=== PATIENT | female | born 1955 | race Caucasian/White ===

== ENCOUNTER 2016-11-19 11:57 | Emergency (ER) | payer OTHER ==
[~2016-11-19] VITALS: Ht 167.6 cm; Wt 72.6 kg
[~2016-11-19 11:57] MED LIST: AUGMENTIN 875875 MG PO; HYDROCHLOROTHIA25 M1 PO; LISINOPRIL20 M1 PO
--- NOTE | 2016-11-19 13:19 | ED GENERAL ADULT ---
History of Present Illness General Chief Complaint: Chest Pain Stated Complaint: CP Source: patient, old records Exam Limitations: no limitations Vital Signs & Intake/Output Vital Signs & Intake/Output ED Intake and Output 11/20 0000 11/19 1200 Intake Total 0 Output Total Balance 0 Intake, IV 0 Patient 160 lb Weight Allergies Coded Allergies: NO KNOWN ALLERGIES (12/08/11) Reconcile Medications Hydrochlorothiazide 25 MG TABLET 1 TAB PO DAILY WATER PILL (Reported) Lisinopril 20 MG TABLET 1 TAB PO DAILY HEART (Reported) Triage Note: PT STATES SHE IS NOT FEELING LIKE HERSELF STATES SHE HAD WEAKNESS IN HER LEFT SIDE OF FACE AND RIGHT ARM. PT STATES SHE HAS LOTS OF STRESS EVERYDAY. PT SAW HER PCP YESTERDAY AND HER BP WAS HIGH. Triage Nurses Notes Reviewed? yes Onset: Gradual Duration: minute(s): Timing: remote history Injury Environment: home Severity: moderate No Modifying Factors: none HPI: Patient is a 61-year-old female presenting to the emergency department with chief complaint of right arm weakness and left-sided facial numbness that lasted approximately 5 minutes yesterday. She saw her primary care physician about an hour after the symptoms happen and scheduled her for an outpatient EKG. Patient reports similar episode of symptoms 7 months ago and she was discharged home after negative CT scan. She never followed up with anyone regards to her symptoms. Patient denying any symptoms currently. Denies any facial droop at the time. No confusion. Denies headaches. Denies trouble speaking. She still eating and drinking without difficulty. She reports that she's been asymptomatic today. No urinary symptoms. No abdominal pain. (VALORIE BOLDEN) Past History Travel History Traveled to [place] past 21 day No Medical History Any Pertinent Medical History? see below for history Cardiovascular: hypertension Tetanus Vaccine: 05/21/14 Surgical History Surgical History: non-contributory Psychosocial History What is your primary language [facility] Tobacco Use: Never used ETOH Use: denies use Illicit Drug Use: denies illicit drug use Family History Hx Contributory? No (VALORIE BOLDEN) Review of Systems Review of Systems Constitutional: Reports: no symptoms. Comments Review of systems: See HPI, All other systems negative. Constitutional, no chills fever or weight loss HEENT: No visual changes no sore throat no congestion Cardiovascular: No chest pain ,palpitation , orthopnea or ankle swelling Skin, no jaundice no rashes Respiratory: No dyspnea cough sputum or hemoptysis GI: No nausea no vomiting : No dysuria No hematuria Muscle skeletal: no back pain, no neck pain, Neurologic:no confusion NO REGAN Psych: No stress anxiety or depression,. Heme/endocrine: No bruising no bleeding no polyuria or polydipsia Immunology: No splenectomy or history of AIDS (VALORIE BOLDEN) Physical Exam Physical Exam General Appearance: well developed/nourished, no apparent distress, alert, awake , comfortable Comments: Well-developed well-nourished person in no acute distress HEENT: Pupils equally round and reactive to light and accommodation. Nose is atraumatic. External auditory canal and Tympanic membranes clear. Pharynx normal. No swelling or edema. Neck: Supple, no lymphadenopathy, normal range of motion without pain or tenderness Back: NontendeR Cardiovascular: Regular rate and rhythms no murmurs rubs or gallops, normal JVP Respiratory: Chest nontender. No respiratory distress.breath sounds clear to auscultation bilaterally Abdomen: Soft, nontender nondistended, no appreciable organomegaly. Normal bowel sounds. No ascites Extremity: No edema, no calf tenderness to palpation, normal and equal pulses. Neuro: Alert oriented x3, motor sensory normal, cranial nerves II through XII grossly intact. Cerebellar testing unremarkable. Skin: No appreciable rash on exposed skin, skin is warm and dry. Psych: Mood and affect is normal, memory and judgment is normal. Core Measures ACS in differential dx? No CVA/TIA Diagnosis: Yes NIH Stroke Scale: Total 0 Dt/Tm Last Known Well: Yes (NOW) Date Last Known Well: 11/19/16 Time Last Known Well: 1603 Reason tPA not ordered: Refusal of treatment Comment: TPA NOT INDICATED- NO SYMPTOMS Severe Sepsis Present: No Septic Shock Present: No Bedside Swallow Eval Done: Yes Result of Evaluation: Pass (VALORIE BOLDEN) Progress Differential Diagnoses I considered the following diagnoses in my evaluation of the patient: TIA, CVA, electrolyte abnormality, viral syndrome Plan of Care: Orders Procedure Date/time Status Add-on Test (ER Only) 11/19 1420 Active URINALYSIS 11/19 1339 Complete CHOLESTEROL 11/19 1330 Complete TROPONIN LEVEL 11/19 1322 Complete PARTIAL THROMBOPLASTIN TIME 11/19 1322 Complete PROTHROMBIN TIME 11/19 1322 Complete COMPREHENSIVE METABOLIC PANEL 11/19 1322 Complete CBC WITHOUT DIFFERENTIAL 11/19 1322 Complete EKG 11/19 1158 Active Laboratory Tests 11/19/16 1345: Urine Color YEL, Urine Clarity CLEAR, Urine pH 6.0, Ur Specific [place] 1.020, Urine Protein NEG, Urine Ketones NEG, Urine Nitrite NEG, Urine Bilirubin NEG, Urine Urobilinogen 0.2, Ur Leukocyte Esterase NEG, Ur Microscopic EXAM NOT REQUIRED, Urine Hemoglobin NEG, Urine Glucose NEG 11/19/16 1330: Anion Gap 7, Estimated GFR > 60, BUN/Creatinine Ratio 16.3, Glucose 96, Calcium 10.1, Total Bilirubin 0.4, AST 26, ALT 38, Alkaline Phosphatase 82, Troponin I < 0.01, Total Protein 7.0, Albumin 4.1, Globulin 2.9, Albumin/Globulin Ratio 1.4, Cholesterol 238 H, PT 11.8, INR 1.13, APTT 29, CBC w Diff NO MAN DIFF REQ, RBC 4.57, MCV 87.2, MCH 29.0, RDW 13.4, MPV 8.6, Gran % 54.7, Lymphocytes % 26.9, Monocytes % 8.6, Eosinophils % 9.3 H, Basophils % 0.5, Absolute Granulocytes 4.2, Absolute Lymphocytes 2.1, Absolute Monocytes 0.7 H, Absolute Eosinophils 0.7, Absolute Basophils 0, PUBS MCHC 33.3 Diagnostic Imaging: Viewed by Me: MRI. Discussed w/RAD: MRI. Radiology Impression: PATIENT: GAUTAM PICHARDO PRESENT AGE: 61 PATIENT ACCOUNT NO: [id number] : 55 LOCATION: [facility] ORDERING PHYSICIAN: VALORIE IBARRA SERVICE DATE: 11/19/16 EXAM TYPE: MRI - MRI-HEAD W/O ADDI EXAMINATION: MR BRAIN WITHOUT CONTRAST CLINICAL INFORMATION: 61 -year-old woman with right arm weakness and left facial paresthesias. COMPARISON : 04/15/[address] TECHNIQUE: MRI of the brain without contrast was obtained using routine sequences. FINDINGS: Images are slightly degraded by patient motion. There is a suggestion of a subtle 3 mm focus of restricted diffusion in the left upper dorsal stacy that could reflect a small acute stroke. A small chronic lacunar infarct is noted in the right posterior lentiform nucleus. 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 No focal reduced diffusion is seen to suggest acute or subacute cerebral ischemia. No intracranial mass, intracerebral edema, intra-axial blood products, midline shift, or extra-axial collection is visualized. The ventricles and sulcal spaces appear normal. Normal arterial and venous vascular flow voids are present. A mucus retention cyst is visible in the right maxillary sinus. Numerous large calcified sebaceous cysts are again seen throughout the scalp. IMPRESSION: Imaging findings suggest an acute punctate lacunar infarct in the left upper dorsal stacy. Initial ED EKG: SINUS RHYTHM 63 BPM Prior EKG: unchanged Comments: On arrival patient no acute distress no focal deficit, no focal neurological findings. Patient is alert and oriented 3. Patient has had similar symptoms in the past and never has followed up with MRI. Patient will have MRI today. Pending MRI patient will get aspirin. Patient was informed of MRI results revealing acute lacunar infarct. She was given 325 dose of aspirin. She is refusing to be admitted. Potential risks of leaving AGAINST MEDICAL ADVICE To the patient. She is aware that after TIAs and CVAs the first 24-40 hours R crucial and she can have another stroke which could leave deficits. It also and in . Patient is aware and would like to sign out AGAINST MEDICAL ADVICE. D /E DR BRIGGS AND HE AGREES WITH PLAN. (VALORIE BOLDEN) Departure Departure Time of Disposition: 1540 Disposition: LEFT AGAINST MEDICAL ADVICE Condition: Stable Clinical Impression Primary Impression: Stroke Qualifiers: CVA mechanism: unspecified Qualified Code: I63.9 - Cerebral infarction, unspecified Referrals: DESIREE GALE APRN (PCP/Family) Additional Instructions: Make sure you follow up with your primary care physician attaches a copy of your MRI report. Your advised to stay in the hospital since MRI indicated that he had a stroke they left AGAINST MEDICAL ADVICE. You are to continue taking aspirin daily. Your given a dose today in the emergency department. YOU signed the AMA form prior to leaving the emergency department. Please return for any worsening symptoms or concerns. Continue taking blood pressure medication. YOU were made fully aware of the potential symptoms and alcohol of leaving the hospital with an acute stroke on MRI could be. PATIENT: GAUTAM PICHARDO PRESENT AGE: 61 PATIENT ACCOUNT NO: [id number] : 55 LOCATION: [facility] ORDERING PHYSICIAN: VALORIE IBARRA SERVICE DATE: 11/19/16858 EXAM TYPE: MRI - MRI-HEAD W/O ADDI EXAMINATION: MR BRAIN WITHOUT CONTRAST CLINICAL INFORMATION: 61-year-old woman with right arm weakness and left facial paresthesias. COMPARISON: 04/15/[address] TECHNIQUE: MRI of the brain without contrast was obtained using routine sequences. FINDINGS: Images are slightly degraded by patient motion. There is a suggestion of a subtle 3 mm focus of restricted diffusion in the left upper dorsal stacy that could reflect a small acute stroke. A small chronic lacunar infarct is noted in the right posterior lentiform nucleus. 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 No focal reduced diffusion is seen to suggest acute or subacute cerebral ischemia. No intracranial mass, intracerebral edema, intra-axial blood products, midline shift, or extra-axial collection is visualized. The ventricles and sulcal spaces appear normal. Normal arterial and venous vascular flow voids are present. A mucus retention cyst is visible in the right maxillary sinus. Numerous large calcified sebaceous cysts are again seen throughout the scalp. IMPRESSION: Imaging findings suggest an acute punctate lacunar infarct in the left upper dorsal stacy. DICTATED BY: KASSANDRA CONNOLLY MD DATE/TIME DICTATED:11/19/16 / 1510 Departure Forms: Customer Survey General Discharge Information (VALORIE BOLDEN) PA/MENTAL HEALTH PRACTITIONER Co-Sign Statement Statement: ED Attending supervision documentation- x I saw and evaluated the patient. I have also reviewed all the pertinent lab results and diagnostic results. I agree with the findings and the plan of care as documented in the PA's/MENTAL HEALTH PRACTITIONER's documentation. [] I have reviewed the ED Record and agree with the PA's/MENTAL HEALTH PRACTITIONER's documentation. [] Additions or exceptions (if any) to the PAs/MENTAL HEALTH PRACTITIONER's note and plan are summarized below: [] (MAEGAN BRIGGS MD) Critical Care Note Critical Care Note Critical Care Time: 75-104 min (VALORIE BOLDEN)
[2016-11-19 13:45] LABS: ABSOLUTE BASOPHIL COUNT 0 /CUMM (0.0-0.2); ABSOLUTE EOSINOPHIL COUNT 0.7 /CUMM (0.0-0.7); ABSOLUTE GRANULOCYTE CT 4.2 /CUMM (1.4-6.5); ABSOLUTE LYMPH COUNT 2.1 /CUMM (1.2-3.4); ABSOLUTE MONOCYTE COUNT 0.7 /CUMM (0.10-0.60); BASOPHIL % 0.5 % (0.0-2.0); EOSINOPHIL % 9.3 % (0-5); GRANULOCYTE % 54.7 % (42.2-75.2); HEMATOCRIT 39.8 % (37-47); MEAN CORPUSCULAR HGB CONC 33.3 G/DL (33.0-37.0); MEAN CORPUSCULAR VOLUME 87.2 FL (81.0-99.0); MEAN PLATELET VOLUME 8.6 FL (7.4-10.4); PLATELET COUNT 279 /CUMM (130-400); RBC DISTRIBUTION WIDTH 13.4 % (11.5-14.5); RED BLOOD CELL CT 4.57 /CUMM (4.20-5.40); WHITE BLOOD CELL COUNT 7.7 /CUMM (4.8-10.8)
[2016-11-19 13:58] LABS: PT 11.8 SEC (9.4-12.5); PTT 29 SEC (25-37)
[2016-11-19 14:48] VITALS: BP 159/90
--- NOTE | 2016-11-19 15:16 | MRI REPORT ---
EXAMINATION: MR BRAIN WITHOUT CONTRAST CLINICAL INFORMATION: 61-year-old woman with right arm weakness and left facial paresthesias. COMPARISON: 04/15/[address] TECHNIQUE: MRI of the brain without contrast was obtained using routine sequences. FINDINGS: Images are slightly degraded by patient motion. There is a suggestion of a subtle 3 mm focus of restricted diffusion in the left upper dorsal stacy that could reflect a small acute stroke. A small chronic lacunar infarct is noted in the right posterior lentiform nucleus. 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 No focal reduced diffusion is seen to suggest acute or subacute cerebral ischemia. No intracranial mass, intracerebral edema, intra-axial blood products, midline shift, or extra-axial collection is visualized. The ventricles and sulcal spaces appear normal. Normal arterial and venous vascular flow voids are present. A mucus retention cyst is visible in the right maxillary sinus. Numerous large calcified sebaceous cysts are again seen throughout the scalp. IMPRESSION: Imaging findings suggest an acute punctate lacunar infarct in the left upper dorsal stacy.
== END 2016-11-19 16:35 | disposition left against medical advice (07) ==
LOC: ERH 11:57
PROVIDERS: Physician Assistant
DX: I63.9 Cerebral infarction, unspecified (principal); R53.1 Weakness; R20.0 Anesthesia of skin; I10 Essential (primary) hypertension
CPT/HCPCS: 70551; 81003; 93005; 93010